=== PATIENT | female | born 1955 ===

== ENCOUNTER 2017-11-14 12:41 | Day surgery (SDC) | payer OTHER | END 2017-11-14 22:48 | disposition home or self-care (01) | LOC: CT 12:41 | DX: I71.2 Thoracic aortic aneurysm, without rupture (principal); I25.10 Atherosclerotic heart disease of native coronary artery without angina pectoris; I31.3 Pericardial effusion (noninflammatory) | CPT/HCPCS: 71275; 74175; Q9967 ==

== ENCOUNTER 2019-11-13 11:23 | Emergency (ER) | payer OTHER ==
[~2019-11-13] VITALS: Ht 165.1 cm; Wt 104.3 kg
[2019-11-13 11:44] LABS: BASOPHILS ABSOLUTE AUTO 0.01 K/mm3 (0.00-0.23); BASOPHILS PERCENT AUTO 0 % (0-2); EOSINOPHILS ABSOLUTE AUTO 0.01 K/mm3 (0.00-0.68); EOSINOPHILS PERCENT AUTO 0 % (0-6); Hematocrit 42.9 % (33.0-51.0); Hemoglobin 13.8 g/dL (11.5-16.0); IMMATURE GRAN ABSOLUTE AUTO 0.02 K/mm3 (0.00-0.10); IMMATURE GRAN PERCENT AUTO 0 % (0-1); LYMPHOCYTES ABSOLUTE AUTO 2.15 K/mm3 (0.84-5.20); LYMPHOCYTES PERCENT AUTO 31 % (21-46); MONOCYTES ABSOLUTE AUTO 0.46 K/mm3 (0.16-1.47); MONOCYTES PERCENT AUTO 7 % (4-13); Mean Corpuscular HGB 30.8 pg (26.0-34.0); Mean Corpuscular HGB Conc 32.2 g/dL (31.5-36.5); Mean Corpuscular Volume 96 fL (80-100); Mean Platelet Volume 10.2 fL (9.1-12.4); NEUTROPHILS ABSOLUTE AUTO 4.28 K/mm3 (1.96-9.15); NEUTROPHILS PERCENT AUTO 62 % (41-73); Platelet Count 214 K/mm3 (150-400); RDW Coefficient Variation 14.1 % (11.7-14.2); RDW Standard Deviation 49.8 fL (35.1-46.3); Red Blood Cell Count 4.48 M/mm3 (3.80-5.20); White Blood Cell Count 6.93 K/mm3 (4.00-11.30)
[2019-11-13] MEDS ORDERED: ASPI81CH PO (11:50)
[2019-11-13] MEDS ORDERED: BUPR150ER PO (11:50)
[2019-11-13] MEDS ORDERED: ZYRTEC10 M2 PO (11:51)
[2019-11-13] MEDS ORDERED: Vitamin D2000 UNIT PO (11:51)
[2019-11-13] MEDS ORDERED: CENTRUM SILVER1 EAC2 PO (11:53)
[2019-11-13] MEDS ORDERED: DULO30 PO (11:53)
[2019-11-13] MEDS ORDERED: EUTHYROX125 MCG PO (11:53)
[2019-11-13] MEDS ORDERED: PANT40 PO (11:54)
[2019-11-13] MEDS ORDERED: NITR.4SL SL (11:54)
[2019-11-13] MEDS ORDERED: PRALUENT P75 MG/1 ML SC (11:55)
[2019-11-13] MEDS ORDERED: TRAZ100 PO (11:55)
[2019-11-13] MEDS ORDERED: VALA500 PO (11:55)
[2019-11-13] MEDS ORDERED: EPIPEN0.3 MG/0.1 IM (11:56)
[2019-11-13] MEDS ORDERED: ZOLP10 PO (11:56)
[2019-11-13 12:10] LABS: Alanine Aminotransfer (ALT/SGP 28 U/L (12-78); Albumin, Blood 3.3 g/dL (3.4-5.0); Albumin/Globulin Ratio 0.8 (0.8-1.8); Alk Phos 66 U/L (50-136); Anion Gap 6 mmol/L (6-16); Aspartate Aminotrans (AST/SGOT 19 U/L (12-37); Bilirubin, Total 0.3 mg/dL (0.1-1.0); Blood Urea Nitrogen 12 mg/dL (8-24); Bun/Creatinine Ratio 16.8 (12.0-20.0); CO2, Blood 28 mmol/L (21-32); Calcium, Blood 8.9 mg/dL (8.5-10.1); Chloride, Blood 107 mmol/L (98-108); Creatinine, Blood 0.71 mg/dL (0.40-1.00); Glomerular Filtration Rate >60 (60-); Glucose, Blood 166 mg/dL (70-99); Potassium, Blood 3.7 mmol/L (3.5-5.5); Sodium, Blood 141 mmol/L (136-145); Total Protein, Blood 7.3 g/dL (6.4-8.2); Troponin I <0.015 ng/mL (0.000-0.040)
[2019-11-13 12:20] LABS: Free Thyroxine 0.98 ng/dL (0.70-1.60)
[2019-11-13 12:22] LABS: Thyroid Stimulating Hormone 1.21 uIU/mL (0.360-4.800)
[2019-11-13 12:57] LABS: Source, Urine Clean Catch
[2019-11-13 12:59] LABS: Bilirubin, Urine Neg (Neg); Blood, Urine Neg (Neg); Glucose Qualitative, Urine 2+ (Neg); Ketones, Urine 1+ (Neg); Leukocyte Esterase, Urine 2+ (Neg); Nitrite, Urine Neg (Neg); Protein, Urine Neg (Neg); Urobilinogen, Urine NORM (Normal)
[2019-11-13 13:12] LABS: Appearance, Urine Clear (Clear); Color, Urine Yellow (P-Yellow); U Amphetamine Screen Not Detected; U Barbituate Screen Not Detected; U Benzodiazapine Screen Not Detected; U Buprenorphine Screen Not Detected; U Cannabinoids Screen DETECTED; U Cocaine Screen Not Detected; U Methadone Screen Not Detected; U Methamphetamine Screen Not Detected; U Opiates Screen Not Detected; U Oxycodone Screen Not Detected; U Phencyclidine Screen Not Detected; U Propoxyphene Screen Not Detected
[2019-11-13 13:15] LABS: Bacteria Mod /hpf; Red Blood Cells, Urine 0-2 /hpf (0-2); Squamous Epithelial Cells Few /hpf (Few); White Blood Cells, Urine 25-50 /hpf (0-5)
[2019-11-13] MEDS ORDERED: CEPH500 PO (13:51)
== END 2019-11-13 14:45 | disposition home or self-care (01) ==
LOC: ER 11:23
PROVIDERS: Emergency Medicine
DX: N39.0 Urinary tract infection, site not specified (principal); R46.4 Slowness and poor responsiveness; E03.9 Hypothyroidism, unspecified; Z86.59 Personal history of other mental and behavioral disorders; Z86.73 Personal history of transient ischemic attack (TIA), and cerebral infarction without residual deficits; Z91.030 Bee allergy status; Z79.82 Long term (current) use of aspirin; Z79.899 Other long term (current) drug therapy; Z88.5 Allergy status to narcotic agent; Z88.6 Allergy status to analgesic agent; Z88.1 Allergy status to other antibiotic agents; Z91.02 Food additives allergy status; Z88.8 Allergy status to other drugs, medicaments and biological substances
CPT/HCPCS: 70450; 80053; 81001; 84439; 84443; 84484; 85025; 87086; 93005; 93010; 96365; 99285-25; J0696

== ENCOUNTER 2020-02-03 15:22 | Emergency (ER) | payer OTHER ==
[~2020-02-03] VITALS: Ht 165.1 cm; Wt 106.6 kg
[~2020-02-03 15:22] MED LIST: ASPI81CH PO; BUPR150ER PO; CENTRUM SILVER1 EAC2 PO; CEPH500 PO; DULO30 PO; EPIPEN0.3 MG/0.1 IM; EUTHYROX125 MCG PO; NITR.4SL SL; PANT40 PO; PRALUENT P75 MG/1 ML SC; TRAZ100 PO; VALA500 PO; Vitamin D2000 UNIT PO; ZOLP10 PO; ZYRTEC10 M2 PO
[2020-02-03 16:39] LABS: BASOPHILS ABSOLUTE AUTO 0.02 K/mm3 (0.00-0.23); BASOPHILS PERCENT AUTO 0 % (0-2); EOSINOPHILS PERCENT AUTO 0 % (0-6); Hematocrit 41.3 % (33.0-51.0); Hemoglobin 13.4 g/dL (11.5-16.0); IMMATURE GRAN ABSOLUTE AUTO 0.02 K/mm3 (0.00-0.10); IMMATURE GRAN PERCENT AUTO 0 % (0-1); LYMPHOCYTES ABSOLUTE AUTO 2.45 K/mm3 (0.84-5.20); LYMPHOCYTES PERCENT AUTO 32 % (21-46); MONOCYTES ABSOLUTE AUTO 0.56 K/mm3 (0.16-1.47); MONOCYTES PERCENT AUTO 7 % (4-13); Mean Corpuscular HGB 30.4 pg (26.0-34.0); Mean Corpuscular HGB Conc 32.4 g/dL (31.5-36.5); Mean Corpuscular Volume 94 fL (80-100); Mean Platelet Volume 11.1 fL (9.1-12.4); NEUTROPHILS ABSOLUTE AUTO 4.69 K/mm3 (1.96-9.15); NEUTROPHILS PERCENT AUTO 61 % (41-73); Platelet Count 218 K/mm3 (150-400); RDW Coefficient Variation 14.3 % (11.7-14.2); RDW Standard Deviation 49.5 fL (35.1-46.3); Red Blood Cell Count 4.41 M/mm3 (3.80-5.20); White Blood Cell Count 7.74 K/mm3 (4.00-11.30)
[2020-02-03 16:53] LABS: Alanine Aminotransfer (ALT/SGP 27 U/L (12-78); Albumin, Blood 3.4 g/dL (3.4-5.0); Albumin/Globulin Ratio 0.8 (0.8-1.8); Alk Phos 66 U/L (50-136); Anion Gap 7 mmol/L (6-16); Aspartate Aminotrans (AST/SGOT 38 U/L (12-37); Bilirubin, Total 0.5 mg/dL (0.1-1.0); Blood Urea Nitrogen 17 mg/dL (8-24); Bun/Creatinine Ratio 22.4 (12.0-20.0); CO2, Blood 25 mmol/L (21-32); Chloride, Blood 106 mmol/L (98-108); Creatinine, Blood 0.76 mg/dL (0.40-1.00); Glomerular Filtration Rate >60 (60-); Glucose, Blood 114 mg/dL (70-99); Potassium, Blood 4.4 mmol/L (3.5-5.5); Sodium, Blood 138 mmol/L (136-145); Total Protein, Blood 7.4 g/dL (6.4-8.2); Troponin I <0.015 ng/mL (0.000-0.040)
== END 2020-02-03 17:45 | disposition home or self-care (01) ==
LOC: ER 15:22
PROVIDERS: Emergency Medicine
DX: R07.9 Chest pain, unspecified (principal); E78.5 Hyperlipidemia, unspecified; E03.9 Hypothyroidism, unspecified; I25.10 Atherosclerotic heart disease of native coronary artery without angina pectoris; Z79.82 Long term (current) use of aspirin; Z79.899 Other long term (current) drug therapy
CPT/HCPCS: 36415; 71045; 80053; 83690; 84484; 85025; 93005; 93010; 99285-25

== ENCOUNTER 2020-08-26 11:52 | Emergency (ER) | payer OTHER ==
[~2020-08-26] VITALS: Ht 165.1 cm; Wt 112.9 kg
[~2020-08-26 11:52] MED LIST changes: -ASPI81CH PO; -DULO30 PO; -EUTHYROX125 MCG PO; -PANT40 PO; -PRALUENT P75 MG/1 ML SC; -VALA500 PO; -ZYRTEC10 M2 PO
[2020-08-26 12:57] LABS: BASOPHILS ABSOLUTE AUTO 0.02 K/mm3 (0.00-0.23); BASOPHILS PERCENT AUTO 0 % (0-2); EOSINOPHILS ABSOLUTE AUTO 0.03 K/mm3 (0.00-0.68); EOSINOPHILS PERCENT AUTO 0 % (0-6); Hematocrit 43.2 % (33.0-51.0); Hemoglobin 13.8 g/dL (11.5-16.0); IMMATURE GRAN ABSOLUTE AUTO 0.02 K/mm3 (0.00-0.10); IMMATURE GRAN PERCENT AUTO 0 % (0-1); LYMPHOCYTES ABSOLUTE AUTO 2.55 K/mm3 (0.84-5.20); LYMPHOCYTES PERCENT AUTO 33 % (21-46); MONOCYTES ABSOLUTE AUTO 0.43 K/mm3 (0.16-1.47); MONOCYTES PERCENT AUTO 6 % (4-13); Mean Corpuscular HGB 30.1 pg (26.0-34.0); Mean Corpuscular HGB Conc 31.9 g/dL (31.5-36.5); Mean Corpuscular Volume 94 fL (80-100); NEUTROPHILS ABSOLUTE AUTO 4.76 K/mm3 (1.96-9.15); NEUTROPHILS PERCENT AUTO 61 % (41-73); RDW Coefficient Variation 14.3 % (11.7-14.2); RDW Standard Deviation 49.5 fL (35.1-46.3); Red Blood Cell Count 4.59 M/mm3 (3.80-5.20); White Blood Cell Count 7.81 K/mm3 (4.00-11.30)
[2020-08-26 13:01] LABS: Troponin I <0.015 ng/mL (0.000-0.040)
[2020-08-26 13:05] LABS: Mean Platelet Volume 11.5 fL (9.1-12.4)
[2020-08-26 13:07] LABS: Alanine Aminotransfer (ALT/SGP 28 U/L (12-78); Albumin, Blood 3.3 g/dL (3.4-5.0); Albumin/Globulin Ratio 0.8 (0.8-1.8); Alk Phos 62 U/L (50-136); Anion Gap 4 mmol/L (6-16); Aspartate Aminotrans (AST/SGOT 41 U/L (12-37); Bilirubin, Total 0.4 mg/dL (0.1-1.0); Blood Urea Nitrogen 13 mg/dL (8-24); Bun/Creatinine Ratio 19.2 (12.0-20.0); CO2, Blood 27 mmol/L (21-32); Calcium, Blood 8.4 mg/dL (8.5-10.1); Chloride, Blood 105 mmol/L (98-108); Creatinine, Blood 0.68 mg/dL (0.40-1.00); Globulin, Blood 4.3 g/dL (2.2-4.0); Glomerular Filtration Rate >60 (60-); Glucose, Blood 169 mg/dL (70-99); Potassium, Blood 5.5 mmol/L (3.5-5.5); Sodium, Blood 136 mmol/L (136-145); Total Protein, Blood 7.6 g/dL (6.4-8.2)
[2020-08-26 13:27] LABS: Platelet Count 134 K/mm3 (150-400)
== END 2020-08-26 18:20 | disposition home or self-care (01) ==
LOC: ER 11:52
PROVIDERS: Emergency Medicine
DX: M54.2 Cervicalgia (principal); E03.9 Hypothyroidism, unspecified; E78.5 Hyperlipidemia, unspecified
CPT/HCPCS: 71046; 80053; 84484; 85025; 93005; 93010; 99284-25

== ENCOUNTER 2020-09-04 19:34 | Inpatient (IN) | payer OTHER ==
[~2020-09-04] VITALS: Ht 165.1 cm; Wt 114.0 kg
[2020-09-04 20:22] LABS: BASOPHILS ABSOLUTE AUTO 0.02 K/mm3 (0.00-0.23); BASOPHILS PERCENT AUTO 0 % (0-2); EOSINOPHILS PERCENT AUTO 0 % (0-6); Hematocrit 40.7 % (33.0-51.0); Hemoglobin 13.4 g/dL (11.5-16.0); IMMATURE GRAN ABSOLUTE AUTO 0.02 K/mm3 (0.00-0.10); IMMATURE GRAN PERCENT AUTO 0 % (0-1); LYMPHOCYTES ABSOLUTE AUTO 2.45 K/mm3 (0.84-5.20); LYMPHOCYTES PERCENT AUTO 25 % (21-46); MONOCYTES ABSOLUTE AUTO 0.75 K/mm3 (0.16-1.47); MONOCYTES PERCENT AUTO 8 % (4-13); Mean Corpuscular HGB 30.1 pg (26.0-34.0); Mean Corpuscular HGB Conc 32.9 g/dL (31.5-36.5); Mean Corpuscular Volume 92 fL (80-100); Mean Platelet Volume 10.5 fL (9.1-12.4); NEUTROPHILS ABSOLUTE AUTO 6.39 K/mm3 (1.96-9.15); NEUTROPHILS PERCENT AUTO 66 % (41-73); Platelet Count 270 K/mm3 (150-400); RDW Coefficient Variation 13.9 % (11.7-14.2); RDW Standard Deviation 46.7 fL (35.1-46.3); Red Blood Cell Count 4.45 M/mm3 (3.80-5.20); White Blood Cell Count 9.63 K/mm3 (4.00-11.30)
[2020-09-04 20:51] LABS: Alanine Aminotransfer (ALT/SGP 28 U/L (12-78); Albumin, Blood 3.7 g/dL (3.4-5.0); Albumin/Globulin Ratio 0.8 (0.8-1.8); Alk Phos 72 U/L (50-136); Anion Gap 6 mmol/L (6-16); Aspartate Aminotrans (AST/SGOT 17 U/L (12-37); Bilirubin, Total 0.3 mg/dL (0.1-1.0); Blood Urea Nitrogen 13 mg/dL (8-24); Bun/Creatinine Ratio 17.5 (12.0-20.0); CO2, Blood 26 mmol/L (21-32); Calcium, Blood 9.2 mg/dL (8.5-10.1); Chloride, Blood 105 mmol/L (98-108); Creatinine, Blood 0.74 mg/dL (0.40-1.00); Globulin, Blood 4.4 g/dL (2.2-4.0); Glomerular Filtration Rate >60 (60-); Glucose, Blood 128 mg/dL (70-99); Potassium, Blood 3.9 mmol/L (3.5-5.5); Sodium, Blood 137 mmol/L (136-145); Total Protein, Blood 8.1 g/dL (6.4-8.2); Troponin I <0.015 ng/mL (0.000-0.040)
[2020-09-04 21:24] LABS: C-REACTIVE PROTEIN, EXT RANGE 0.812 mg/dL (0.000-0.300)
[2020-09-04] MEDS ORDERED: ZYRTEC10 M2 PO (22:19)
[2020-09-04] MEDS ORDERED: Aspir 8181 MG PO (22:19)
[2020-09-04] MEDS ORDERED: VALA500 PO (22:20)
[2020-09-04] MEDS ORDERED: EUTHYROX125 MCG PO (22:20)
[2020-09-04] MEDS ORDERED: PANT40 PO (22:20)
[2020-09-04] MEDS ORDERED: PRALUENT P75 MG/1 ML SC (22:20)
[2020-09-04] MEDS ORDERED: DULO60 PO (22:20)
[2020-09-04] MEDS ORDERED: FAMO40 PO (22:21)
[2020-09-04] MEDS ORDERED: DOCU100 PO (22:22)
[2020-09-04] MEDS ORDERED: MELA3 PO (22:22)
--- NOTE | 2020-09-05 06:07 | NUR ---
shift summary pt arrived from ed - alert and oriented, able to make needs known. cooperative wtih plan of care. sats >90% on room air, home cpap at night. tele nsr. no c/o pain. ambulates independently. vss. call light wtihin reach, bed in lowest position. will continue to monitor.
--- NOTE | 2020-09-05 18:45 | NUR ---
PT HYPERTENSIVE WITH SBP IN 160'S, HYDRALAZINE ADMINISTERED PER MAR; PT REPORTED MILD H/A; PT HAD PERICARDIOCENTESIS FROM 1504 TO 1608; PT'S AND SERVICE DOG VISITED AT BEDSIDE PT REPORTED MODERATE H/A; DIET CHANGED FROM CARDIAC TO REGULAR; COFFEE ADMINISTERED PO; PT REPORTED LINGERING H/A; DR. DWYER WAS CALLED AT 1825 AND 1831 ABOUT PT NOT HAVING ANALGESIC RX ON APR, ADVISED TO APPLY HOT OR COLD PACK TO PT'S NECK; ICE PACK APPLIED; SBP'S POST PROCEDURE STABLE AND WDL; PT DENIES ADDITIONAL CONCERNS AT THIS TIME
--- NOTE | 2020-09-06 06:21 | NUR ---
SHIFT SUMMARY NO ACUTE CHANGES THIS SHIFT. PT A&OX4. SP02>92% ON RA. PT WORE CPAP AT NIGHT. TELEMETRY READS SR W PVCS, HR 60'S. PT RESTED IN ROOM, LISTENING TO AUDIO BOOKS. PT SLEPT MOST OF NIGHT. CALL LIGHT IN REACH. WILL GIVE REPORT TO ONCOMING NURSE.
--- NOTE | 2020-09-06 17:34 | NUR ---
PT VSS; PT RECEIVED VISITOR AND SERVICE DOG; PT AOX4 WITH MILD ANXIETY, NSR WITH PVC'S, ON RA, INDEPENDENT TO BATHROOM AND VOIDED AD OLIVERIO; PERICARDICENTESIS SITE WDL; PT TOLERATED CARDIAC DIET WITH ADEQUATE ORAL INTAKE; NO CONCERNS WITH PIV'S, SALINE LOCKED; PT JONES EQUALLY WITH FULL STRENGTH; PT DENIES ADDITIONAL CONCERNS AT THIS TIME
[2020-09-06] MEDS ORDERED: IRBE75 PO (19:03)
--- NOTE | 2020-09-06 19:30 | NUR ---
DISCHARGE_ Pt given written and verbal discharge instructions. Rx given for Avipro. Pt denies questions. Getting dressed, at bedside. Discharge information faxed to [facility] and [facility] for follow up appointments to be scheduled. Stable at this time. Tele removed.
== END 2020-09-06 19:35 | disposition home or self-care (01) | DRG 315 ==
LOC: ER 19:34 → PCU 19:35
PROVIDERS: Emergency Medicine; ADMIT Internal Medicine
PROC: 0W9D3ZZ Drainage of Pericardial Cavity, Percutaneous Approach (ICD-10-PCS; principal; 2020-09-05)
DX: I31.3 Pericardial effusion (noninflammatory) (principal); Z68.41 Body mass index [BMI] 40.0-44.9, adult; I50.32 Chronic diastolic (congestive) heart failure; E66.9 Obesity, unspecified; I25.10 Atherosclerotic heart disease of native coronary artery without angina pectoris; I11.0 Hypertensive heart disease with heart failure; E78.5 Hyperlipidemia, unspecified; E03.9 Hypothyroidism, unspecified; I10 Essential (primary) hypertension; F41.9 Anxiety disorder, unspecified; I71.4 Abdominal aortic aneurysm, without rupture; Z96.653 Presence of artificial knee joint, bilateral; I25.2 Old myocardial infarction; Z95.5 Presence of coronary angioplasty implant and graft; Z88.1 Allergy status to other antibiotic agents; Z88.6 Allergy status to analgesic agent; Z91.030 Bee allergy status; Z88.8 Allergy status to other drugs, medicaments and biological substances; Z79.82 Long term (current) use of aspirin; Z79.899 Other long term (current) drug therapy
CPT/HCPCS: 33016; 36415; 71046; 71275; 80053; 83880; 84443; 84484; 85025; 85651; 86140; 93005; 93010; 93308; 93321; 94762; 96374; 99152; 99153; 99285-25; A9270; C1729; C1894; G0378; J0360; J2250; J3010; J7030; J7040; Q9967

== ENCOUNTER 2020-11-20 17:38 | Emergency (ER) | payer OTHER ==
[~2020-11-20] VITALS: Ht 165.1 cm; Wt 111.1 kg
[~2020-11-20 17:38] MED LIST changes: +Aspir 8181 MG PO; +DOCU100 PO; +DULO60 PO; +EUTHYROX125 MCG PO; +FAMO40 PO; +IRBE75 PO; +MELA3 PO; +PANT40 PO; +PRALUENT P75 MG/1 ML SC; +VALA500 PO; +ZYRTEC10 M2 PO
[2020-11-20 18:22] LABS: BASOPHILS ABSOLUTE AUTO 0.04 K/mm3 (0.00-0.23); BASOPHILS PERCENT AUTO 0 % (0-2); EOSINOPHILS PERCENT AUTO 0 % (0-6); Hematocrit 38.3 % (33.0-51.0); Hemoglobin 12.9 g/dL (11.5-16.0); IMMATURE GRAN PERCENT AUTO 1 % (0-1); LYMPHOCYTES ABSOLUTE AUTO 1.69 K/mm3 (0.84-5.20); LYMPHOCYTES PERCENT AUTO 10 % (21-46); MONOCYTES ABSOLUTE AUTO 1.31 K/mm3 (0.16-1.47); MONOCYTES PERCENT AUTO 8 % (4-13); Mean Corpuscular HGB 29.8 pg (26.0-34.0); Mean Corpuscular HGB Conc 33.7 g/dL (31.5-36.5); Mean Corpuscular Volume 89 fL (80-100); Mean Platelet Volume 9.6 fL (9.1-12.4); NEUTROPHILS ABSOLUTE AUTO 13.14 K/mm3 (1.96-9.15); NEUTROPHILS PERCENT AUTO 81 % (41-73); Platelet Count 366 K/mm3 (150-400); RDW Coefficient Variation 13.7 % (11.7-14.2); RDW Standard Deviation 45.1 fL (35.1-46.3); Red Blood Cell Count 4.33 M/mm3 (3.80-5.20); White Blood Cell Count 16.28 K/mm3 (4.00-11.30)
[2020-11-20 18:53] LABS: Alanine Aminotransfer (ALT/SGP 16 U/L (12-78); Albumin, Blood 2.7 g/dL (3.4-5.0); Albumin/Globulin Ratio 0.6 (0.8-1.8); Alk Phos 58 U/L (50-136); Anion Gap 7 mmol/L (6-16); Aspartate Aminotrans (AST/SGOT 11 U/L (12-37); Bilirubin, Total 0.5 mg/dL (0.1-1.0); Blood Urea Nitrogen 13 mg/dL (8-24); Bun/Creatinine Ratio 19.5 (12.0-20.0); CO2, Blood 29 mmol/L (21-32); Calcium, Blood 9.1 mg/dL (8.5-10.1); Chloride, Blood 99 mmol/L (98-108); Creatinine, Blood 0.67 mg/dL (0.40-1.00); Globulin, Blood 4.9 g/dL (2.2-4.0); Glomerular Filtration Rate >60 (60-); Glucose, Blood 139 mg/dL (70-99); Potassium, Blood 3.5 mmol/L (3.5-5.5); Sodium, Blood 135 mmol/L (136-145); Total Protein, Blood 7.6 g/dL (6.4-8.2)
== END 2020-11-20 18:44 | disposition left against medical advice (07) ==
LOC: ER 17:38
PROVIDERS: Student in an Organized Health Care Education/Training Program
DX: Z53.21 Procedure and treatment not carried out due to patient leaving prior to being seen by health care provider (principal)
CPT/HCPCS: 36415; 80053; 85025

== ENCOUNTER 2020-11-27 20:57 | Inpatient (IN) | payer OTHER ==
[~2020-11-27] VITALS: Ht 165.1 cm; Wt 110.4 kg
[2020-11-27 21:32] LABS: BASOPHILS ABSOLUTE AUTO 0.04 K/mm3 (0.00-0.23); BASOPHILS PERCENT AUTO 0 % (0-2); EOSINOPHILS ABSOLUTE AUTO 0.01 K/mm3 (0.00-0.68); EOSINOPHILS PERCENT AUTO 0 % (0-6); Hematocrit 41.1 % (33.0-51.0); Hemoglobin 13.7 g/dL (11.5-16.0); IMMATURE GRAN ABSOLUTE AUTO 0.14 K/mm3 (0.00-0.10); IMMATURE GRAN PERCENT AUTO 1 % (0-1); LYMPHOCYTES ABSOLUTE AUTO 2.63 K/mm3 (0.84-5.20); LYMPHOCYTES PERCENT AUTO 13 % (21-46); MONOCYTES ABSOLUTE AUTO 1.22 K/mm3 (0.16-1.47); MONOCYTES PERCENT AUTO 6 % (4-13); Mean Corpuscular HGB 29.7 pg (26.0-34.0); Mean Corpuscular HGB Conc 33.3 g/dL (31.5-36.5); Mean Corpuscular Volume 89 fL (80-100); Mean Platelet Volume 9.1 fL (9.1-12.4); NEUTROPHILS ABSOLUTE AUTO 16.95 K/mm3 (1.96-9.15); NEUTROPHILS PERCENT AUTO 81 % (41-73); Platelet Count 432 K/mm3 (150-400); RDW Coefficient Variation 14.7 % (11.7-14.2); RDW Standard Deviation 47.8 fL (35.1-46.3); Red Blood Cell Count 4.61 M/mm3 (3.80-5.20); White Blood Cell Count 20.99 K/mm3 (4.00-11.30)
[2020-11-27 21:53] LABS: Alanine Aminotransfer (ALT/SGP 27 U/L (12-78); Albumin, Blood 2.5 g/dL (3.4-5.0); Albumin/Globulin Ratio 0.6 (0.8-1.8); Alk Phos 62 U/L (50-136); Anion Gap 9 mmol/L (6-16); Aspartate Aminotrans (AST/SGOT 10 U/L (12-37); Bilirubin, Total 0.5 mg/dL (0.1-1.0); Blood Urea Nitrogen 10 mg/dL (8-24); Bun/Creatinine Ratio 13.4 (12.0-20.0); CO2, Blood 24 mmol/L (21-32); Calcium, Blood 8.8 mg/dL (8.5-10.1); Chloride, Blood 104 mmol/L (98-108); Creatinine, Blood 0.75 mg/dL (0.40-1.00); Globulin, Blood 4.5 g/dL (2.2-4.0); Glomerular Filtration Rate >60 (60-); Glucose, Blood 153 mg/dL (70-99); Potassium, Blood 4.3 mmol/L (3.5-5.5); Sodium, Blood 137 mmol/L (136-145); Troponin I <0.015 ng/mL (0.000-0.040)
[2020-11-28 01:42] LABS: International Normalized Ratio 1.11; Prothrombin Time Results 11.6 Sec (9.7-11.5)
[2020-11-28] MEDS ORDERED: ALBU90OI INH (04:27)
[2020-11-28] MEDS ORDERED: CYCL0.05OP BOTHEYES (04:29)
[2020-11-28] MEDS ORDERED: CLOB.05TO TOP (04:29)
[2020-11-28] MEDS ORDERED: HYDCHL25 PO (04:31)
[2020-11-28] MEDS ORDERED: METPRE4DP (04:33)
[2020-11-28 04:46] LABS: SARS-Cov-2 (COVID-19) PCR, MMC NEGATIVE (NEGATIVE)
--- NOTE | 2020-11-28 05:30 | NUR ---
ADMISSION REPORT RECIEVED FROM ER NURSE. PATIENT ARRIVES TO PCU 6 FROM ED VIA GURNEY. PATIENT STOOD AND PIVOTED TO PCU BED INDEPENDENTLY. AMIODARONE GTT INFUSING AT 1MG/MIN. PATIENT ORIENTED TO ROOM AND CALL LIGHT SYSTEM. VSS.
[2020-11-28] MEDS ORDERED: TRAZ100 PO (05:55)
--- NOTE | 2020-11-28 07:22 | NUR ---
UPDATE HEPARIN GTT INFUSING, AMIODARONE INFUSING AT FULL RATE. HOME CPAP SET UP BY RT. PATIENT REMAINS IN AFIB 90-100, STABLE BLOOD PRESSURE. NO OTHER ACUTE CHANGES FROM ADMISSION.
[2020-11-28 08:24] LABS: Magnesium, Blood 2.4 mg/dL (1.6-2.4); Phosphorus, Blood 3.3 mg/dL (2.5-4.9); Thyroid Stimulating Hormone 0.564 uIU/mL (0.360-4.800)
--- NOTE | 2020-11-28 11:47 | NUR ---
ECHOCARDIOGRAM COMPLETE
--- NOTE | 2020-11-28 11:54 | NUR ---
ASSUMPTION OF CARE NOTE PT ALERT AND ORIENTED X 4. SPO2 >90% VIA RA. HEPARIN DRIP INFUSING IN R HAND PER ORDERS, AMIODARONE INFUSING IN LEFT AC PER ORDERS. PT TOLERATED BREAKFAST W/ NO NAUSEA/VOMITTING. PT DENIED CHEST PAIN/PRESSURE. ABLE TO AMBULATE TO BATHROOM OWN OWN. THIS NURSE ASKED PT TO PUT ON NON-SKID SOCKS ON AND PT REFUSED. CALL LIGHT IN REACH, BED IN LOW.
--- NOTE | 2020-11-28 14:53 | NUR ---
INFILTRATION NOTED TO LAC IV THAT HAD AMIODARONE INFUSING. REDNESS, TAUGHT SKIN NOTED TO SITE ALONG WITH LEAKING. THE IV WAS REMOVED INTACT. NO LEAKING FROM SITE ONCE IV WAS D/C. SITE WAS WRAPPED AND COMPRESSED WITH COBAN AND WARM DRESSING APPLIED. THE SITE WAS UNWRAPPED AND REASSESSED, THE SITE IS MARKED, REDNESS NOTED, NO LEAKING NOTED FROM SITE, SKIN AROUND SITE REMAINS TAUGHT BUT NOT HOT OR COOL TO TOUCH. SITE IN REDRESSED WITH COMPRESSION AND ICE PACK IS REMOVED. WILL CONTINUE TO MONITOR.
--- NOTE | 2020-11-28 15:46 | NUR ---
CARE NOTE PT VOICED INTEREST IN FILLING OUT ADVANCED DIRECTIVE, THIS NURSE CONTACTED KULDEEP SOTO FROM [facility] APPROX. 1530 FOR CONSULT SO PT COULD OBTAIN ADVANCED DIRECTIVE PAPERWORK.
--- NOTE | 2020-11-28 16:36 | NUR ---
SHIFT SUMMARY PT REMAINS ALERT AND ORIENTED X 4. SHE IS PLEASANT AND COOPERATIVE WITH CARE. PT REPORTED HX OF PTSD, ANXIETY AND DEPRESSION. AT BEDSIDE W/ SERVICE DOG NOW. PT DID APPEAR TO BE CRYING AT ONE POINT DURING SHIFT; THIS NURSE ASKED IF THERE WAS ANYHTING THAT SHE NEEDED AND SHE REPORTED NO. LATER IN SHIFT PATIENT APPEARED IN BETTER SPIRITS AND CONVERSED EASILY. PT REMAINS ON TELE, AFIB RANGING 90'S-100 PER TELE REPORT. SPO2 REMAINS APPROX 93-95% ON RA. PT DENIES CHEST PAIN OR PRESSURE BUT REPORTED HEADACHE; MEDICATED PER EMAR. AMIODARONE INFUSING IN RIGHT POWERGLIDE, HEPARIN INFUSING PER EMAR IN RIGHT HAND. NO OTHER ACUTE CHANGES NOTED. CALL LIGHT IN REACH. WILL CONTINUE TO MONITOR.
--- NOTE | 2020-11-28 18:38 | NUR ---
PT REPORT CALLED TO RN AT [facility] WHO WILL ASSUME PT CARE, TRANSPORT WILL ARRIVE AROUND SHIFT CHANGE THIS EVENING. LAC UNCHANGED
--- NOTE | 2020-11-28 18:42 | NUR ---
CARE NOTE PT REPORTS BODYACHE/HEADACHE W/ NO IMPROVEMENT FROM MEDICATION PER EMAR; PT STATED THAT ANXIETY AND STRESSFUL SITUATION CONTRIBUTING TO HEADACHE AND AT HOME IBUPROFEN WILL USUALLY MANAGE PAIN NEEDED. LEFT AC IV SITE REMAINS UNCHANGED FROM LAST ASSESSMENT, SITE IS RED AND TAUGHT. PT DENIED PAIN AT SITE.
--- NOTE | 2020-11-28 20:49 | NUR ---
SHIFT SUMMARY/ DISCHARGE NOTEASSUMED CARE OF PT AT 1900. PT IS A/OX4. HEART SOUNDS IRRG\EGULAR, TELE SHOWS AFIB @ 114. OPT C/O CHEST PAIN BUT PT SAID IT WQAS ANXIETY ABOUT LEAVING. PT IS VERY ANXIOUS ABOUT THE SURGERY AND ASKING MANY QUESTIONS. PT DENIES WANTING SOMETHING FOR ANXIETY. AND SERVICE DOG AT BESIDE. AT 0830 EMT ARRIVE. PT LEAVES ROOM AT 0843. PT IS ANXIOUS AND CRYING ABOUT LEAVING AND DOG.
== END 2020-11-28 20:43 | disposition short-term general hospital (02) | DRG 872 ==
LOC: ER 20:57 → PCU 11-28 03:58
PROVIDERS: Family Medicine; Student in an Organized Health Care Education/Training Program; ADMIT Family Medicine
DX: A41.9 Sepsis, unspecified organism (principal); I31.3 Pericardial effusion (noninflammatory); Z68.41 Body mass index [BMI] 40.0-44.9, adult; I48.19 Other persistent atrial fibrillation; I71.2 Thoracic aortic aneurysm, without rupture; I25.10 Atherosclerotic heart disease of native coronary artery without angina pectoris; E78.5 Hyperlipidemia, unspecified; Z96.653 Presence of artificial knee joint, bilateral; I10 Essential (primary) hypertension; F41.9 Anxiety disorder, unspecified; Z20.822 Contact with and (suspected) exposure to COVID-19; F43.10 Post-traumatic stress disorder, unspecified; G47.33 Obstructive sleep apnea (adult) (pediatric); E66.9 Obesity, unspecified; E03.9 Hypothyroidism, unspecified; Z88.5 Allergy status to narcotic agent; Z88.8 Allergy status to other drugs, medicaments and biological substances; Z88.6 Allergy status to analgesic agent; Z88.1 Allergy status to other antibiotic agents; Z91.038 Other insect allergy status; I25.2 Old myocardial infarction; Z95.5 Presence of coronary angioplasty implant and graft; Z98.890 Other specified postprocedural states; Z87.891 Personal history of nicotine dependence; Z79.82 Long term (current) use of aspirin; Z79.899 Other long term (current) drug therapy
CPT/HCPCS: 36415; 80053; 83605; 83735; 83880; 84100; 84145; 84443; 84484; 85025; 85610; 85730; 86850; 86900; 86901; 87040; 93005; 93010; 93308; 93321; 94762; 96365; 96366; 96375; 99285-25; A9270; C1751; J0282; J1644; J2405; J7060; U0004